=== PATIENT | female | born 1950 | race Caucasian/White ===

== ENCOUNTER → 2017-05-21 | Outpatient (CLI) | payer OTHER ==
[~2017-05-21] MED LIST: HCTZ PO; HCTZ25 PO; NEBI20TA3 PO; NONE NOW
--- NOTE | 2017-05-22 09:36 | RADIOLOGY IMAGING REPORT ---
FACILITY: [facility] PATIENT NAME: ERIKA BURNETT : [id number] MR: [id number] V: [id number] EXAM DATE: ORDERING PHYSICIAN: SHABBIR AUSTIN TECHNOLOGIST: Juanita Mcgee PROCEDURE:BILATERAL DIGITAL SCREENING MAMMOGRAM WITH CAD ASSISTED INTERPRETATION & 3D TOMOSYNTHESIS COMPARISON:Prior mammograms 05/01/16, 05/19/14, 03/14/11 INDICATIONS:SCREENING FINDINGS: Moderately heterogeneous fibroglandular tissue is seen throughout the breasts. Just lateral the midline junctions Zone 1 & 2 in the Right CC view there is a focal area of mild architecture distortion with small microcalcifications. This appears to be just inferior to midline on the Right MLO view. Spot magnificent view is recommended for further evaluation. DIAGNOSTIC CATEGORY 0--INCOMPLETE: NEED ADDITIONAL IMAGING EVALUATION. RECOMMENDATIONS: ADDITIONAL MAMMOGRAPHIC VIEWS REQUIRED: RIGHT BREAST. IMPRESSION: BIRADS 0: Incomplete Additional view of the Right breast recommended as described. Dictated by: Nikki Lees M.D. on 05/21/2017 at 17:17 Transcribed by: WAYNE on 05/22/2017 at 8:46 Approved by: Nikki Lees M.D. on 05/22/2017 at 9:35 [facility]
== END ==
LOC: MAMO 02:51
PROVIDERS: ATTEND Nurse Practitioner Family
DX: Z12.31 Encounter for screening mammogram for malignant neoplasm of breast (principal); R92.8 Other abnormal and inconclusive findings on diagnostic imaging of breast
CPT/HCPCS: 77063; 77067

== ENCOUNTER 2017-05-22 02:42 | Day surgery (SDC) | payer OTHER ==
[~2017-05-22] VITALS: Ht 160 cm; Wt 76.7 kg
[2017-05-22] MEDS ORDERED: LIDOCAINE MPF 1% 5 ML VIAL ONE (06:47)
[2017-05-22] MEDS ORDERED: PROPOFOL EMUL(*) 10MG/ML 20 ML 60 ML ONE (06:47)
--- NOTE | 2017-05-22 07:21 | Post Operative Progress Note ---
Post Operative Progress Note Date: May 22, 2017 Time: 10:35 Surgeon: viktor Anesthesia: dr rosenthal Pre-Op Diagnosis: family history of colon canceer Post-Op Diagnosis: sigmoid diverticulosis, polyps at right colon , 65 cm, 40 cm and 15 cm. Procedure(s): colonoscopy and polypectomy JOSE RENEE MD May 22, 2017 07:21
--- NOTE | 2017-05-22 07:22 | Short(Outpt) Discharge Summary ---
Discharge Summary Reason for Hosp/Final Diag: (1) Family history of colon cancer requiring screening colonoscopy Hospital Course & Plan: sigmoid diverticula and multiple polyps Departure Discharge to: Home Discharge Instructions Home Meds Reported Medications Nebivolol Hcl (Bystolic) 20 Mg Tablet, 20 MG PO DAILY 05/02/11 Hydrochlorothiazide (Hydrochlorothiazide) 25 Mg Tab, 12.5 MG PO QDAY 05/02/11 Diet: High Fiber Activity: As Tolerated JOSE RENEE MD May 22, 2017 07:22
[2017-05-22 08:30] VITALS: BP 160/93
[2017-05-22] MEDS ORDERED: NORMOSOL R SOLN(*) 1000 ML BAG 1,000 ML IV PRN (09:05)
[2017-05-22] MEDS ORDERED: LIDOCAINE/SOD BICARB 8.4% SYR ID ONE (09:05)
[2017-05-22 10:36] VITALS: BP 107/65
[2017-05-22 10:50] VITALS: BP 134/77
[2017-05-22 11:00] VITALS: BP 157/81
[2017-05-22 11:10] VITALS: BP 165/75
[2017-05-22 11:12] VITALS: BP 155/78
--- NOTE | 2017-05-22 16:36 | OPERATIVE REPORT 1 ---
EVENT DATE: May 22, 2017 SURGEON: Paul Yo MD ANESTHESIOLOGIST: Chito Bautista MD ANESTHESIA: Sedation. PREOPERATIVE DIAGNOSIS Family history of colon cancer. POSTOPERATIVE DIAGNOSES 1. Sigmoid diverticulosis. 2. A 2 mm polyp in the right colon. 3. A 4 mm polyp at 65 cm. 4. A 4 mm polyp at 40 cm. 5. A 3 mm polyp at 15 cm. PROCEDURE PERFORMED Colonoscopy with polypectomies. DESCRIPTION OF PROCEDURE The patient was placed in the left lateral decubitus position and given intravenous sedation. Rectal exam was unremarkable. The flexible colonoscope was inserted and advanced to the cecum. She had an excellent bowel prep. Ileocecal valve, base of the cecum, and appendiceal orifice were identified. Just above the ileocecal valve was a 2 mm polypoid projection. This was removed with the cold cup. The rest of the right colon was normal, as was the transverse colon. At 65 cm, she had a 5 mm polypoid projection. This was removed with polypectomy snare cautery and retrieved. At 40 cm, she had a 4 mm polyp. This was removed with a snare and retrieved. At 15 cm, she had a 3 mm polyp. This was removed with a polypectomy snare, cautery, and retrieved. The rectum was normal. The scope was retroflexed. That appeared to be normal. She will require repeat colonoscopy in five years because of the polyps and family history. TIGIST
== END 2017-05-22 11:23 | disposition home or self-care (01) ==
LOC: OR 02:42
PROVIDERS: ATTEND Surgery
DX: Z12.11 Encounter for screening for malignant neoplasm of colon (principal); K57.30 Diverticulosis of large intestine without perforation or abscess without bleeding; D12.6 Benign neoplasm of colon, unspecified; Z80.0 Family history of malignant neoplasm of digestive organs
CPT/HCPCS: 00811; 45380; 45385; 88305; J2001; J2704

== ENCOUNTER → 2017-06-17 | Outpatient (CLI) | payer OTHER ==
--- NOTE | 2017-06-19 08:24 | RADIOLOGY IMAGING REPORT ---
FACILITY: [facility] [place] PATIENT NAME: ERIKA BURNETT : [id number] MR: [id number] V: [id number] EXAM DATE: ORDERING PHYSICIAN: SHABBIR AUSTIN TECHNOLOGIST: Rimma Mckenzie PROCEDURE:RIGHT DIGITAL DIAGNOSTIC MAMMOGRAM WITH CAD ASSISTED INTERPRETATION & 3D TOMOSYNTHESIS COMPARISON:Prior mammograms 05/21/17, 05/01/16, 05/19/14, 03/14/11. INDICATIONS:further evaluation FINDINGS: Patient returns for spot magnification views in the Right CC and MLO projections in addition to a mediolateral view of the Right breast. There is a small cluster of rounded calcifications just lateral to midline on the spot magnification views on the Right CC projection. This is just inferior to midline on the Right MLO view and on the inferior portion of breast on the Right mediolateral view. These calcifications are approximately 4cm from the nipple. These calcifications are seen on prior mammograms dating back to 2011 but they appear slightly more conspicuous. It is unclear is to weather the calcifications are more conspicuous related to the advances in imaging technology over the years or related to a true increase in number. None the less stereotactic biopsy of these calcifications recommended for further evaluation. DIAGNOSTIC CATEGORY 4--SUSPICIOUS FOR MALIGNANCY. RECOMMENDATIONS: STEREOTACTIC BREAST BIOPSY: RIGHT BREAST. IMPRESSION: BIRADS 4: Suspicious for malignancy Ultrasound guided core biopsy of the small cluster of calcifications in the inferior lateral portion of the Right breast recommended approximately 4cm from the nipple. Dictated by: Nikki Lees M.D. on 06/17/2017 at 16:59 Transcribed by: WAYNE on 06/18/2017 at 13:22 Approved by: Nikki Lees M.D. on 06/19/2017 at 8:23 [facility]
== END ==
LOC: MAMO 00:51
PROVIDERS: ATTEND Nurse Practitioner Family
DX: R92.1 Mammographic calcification found on diagnostic imaging of breast (principal)
CPT/HCPCS: 77065

== ENCOUNTER 2017-06-26 10:02 | Outpatient (RCR) | payer OTHER ==
[2017-06-27] MEDS ORDERED: NS(*) 0.9% 250 ML BAG 250 ML IVPB ONE (12:50)
--- NOTE | 2017-06-30 09:40 | RADIOLOGY IMAGING REPORT ---
FACILITY: [facility] PATIENT NAME: ERIKA BURNETT : [id number] MR: [id number] V: [id number] EXAM DATE: ORDERING PHYSICIAN: SHABBIR AUSTIN TECHNOLOGIST: Rimma Mckenzie PROCEDURE:RIGHT DIGITAL DIAGNOSTIC MAMMOGRAM COMPARISON:Prior mammogram 06/17/17. INDICATIONS:clip placement FINDINGS: There is now a stereotactic biopsy clip in the inferior lateral portion of the Right breast in the location of the previously noted indeterminate calcifications. Fewer calcifications are now present in this location. Pathology results are pending. RECOMMENDATIONS: IMPRESSION: As above. Dictated by: Nikki Lees M.D. on 06/27/2017 at 15:20 Transcribed by: FIX on 06/27/2017 at 15:49 Approved by: Nikki Lees M.D. on 06/30/2017 at 9:39 [facility]
--- NOTE | 2017-06-30 09:40 | RADIOLOGY IMAGING REPORT ---
FACILITY: [facility] PATIENT NAME: ERIKA BURNETT : [id number] MR: [id number] V: [id number] EXAM DATE: [id number] ORDERING PHYSICIAN: SHABBIR AUSTIN TECHNOLOGIST: Rimma Mckenzie PROCEDURE: BREAST SPECIMEN COMPARISON: None. INDICATIONS: breast mass FINDINGS: Numerous calcifications are present within several of the core biopsies obtained from Today's Right breast stereotactic biopsy. CONCLUSION: As above. Dictated by: Nikki Lees M.D. on 06/27/2017 at 15:19 Transcribed by: WAYNE on 06/27/2017 at 15:52 Approved by: Nikki Lees M.D. on 06/30/2017 at 9:39 [facility]
--- NOTE | 2017-06-30 11:50 | RADIOLOGY IMAGING REPORT ---
FACILITY: [facility] PATIENT NAME: ERIKA BURNETT : [id number] MR: [id number] V: [id number] EXAM DATE: [id number] ORDERING PHYSICIAN: SHABBIR AUSTIN TECHNOLOGIST: Rimma Mckenzie PROCEDURE: STEREOTACTIC RIGHT BREAST BIOPSY COMPARISON: None. INDICATIONS: INDETERMINATE CALCIFICATIONS RIGHT BREAST FINDINGS: Informed consent was obtained. The patient was placed prone on the stereotactic biopsy table. The indeterminate calcifications in the inferior lateral portion of the Right breast were localized with stereo pair mammographic images. The Right breast was prepped the usual sterile fashion. Local anesthesia was accomplished with 1% lidocaine. Deep anesthesia was accomplished with 1% lidocaine with epinephrine. Under stereotactic guidance 12 vacuum assisted core biopsies were obtained in the vicinity of the indeterminate calcifications in the Right breast. The specimen radiograph did reveal numerous calcifications within the core samples. A biopsy clip was placed. Adequate hemostasis was obtained. The procedure was accomplished without apparent complication. CONCLUSION: Successful stereotactic biopsy of the Right breast as described above. Dictated by: Nikki Lees M.D. on 06/27/2017 at 15:18 Transcribed by: WAYNE on 06/30/2017 at 10:15 Approved by: Nikki Lees M.D. on 06/30/2017 at 11:49 [facility]
== END 2017-06-27 18:00 | disposition home or self-care (01) ==
LOC: MAMO 10:02
PROVIDERS: ATTEND Nurse Practitioner Family
DX: Z01.812 Encounter for preprocedural laboratory examination (principal); R92.1 Mammographic calcification found on diagnostic imaging of breast
CPT/HCPCS: 19081; 36415; 77061; 77065; 85610; 88305; 88344